=== PATIENT | female | born 1955 | race Caucasian/White ===

== ENCOUNTER 2023-10-18 11:16 | Outpatient (AMB) | payer MEDICARE, OTHER, SELFPAY ==
--- NOTE | 2023-10-18 11:59 | A.SPINEOV_ITS ---
Intake Visit Reasons: Chronic back pain Intake Note: Ms. Alonso is here today c/o low back pain. Edge Banding Off Bearer Required: No Assessment & Plan Assessment & Plan (1) Lumbar radiculopathy: Code(s): M54.16 - Radiculopathy, lumbar region Category: Medical Plan Dear Burt Thank you for referring Mrs. Alonso to our office today. 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 She murillo s been trying to do conservative management and that seems to be helping. Specifically she started with physical therapy and now has continued to do yoga and Pilates and the pain is more less manageable. She does not need to take any medications. She did try steroids at 1 point. Currently, as long she has doing the conservative management she has really not having much in the way of significant pain. She does not report any back pain. She had an MRI showing some degenerative changes with foraminal stenosis at L5. PMH: She is reasonably healthy, history of Sjogren's syndrome, thyroid cancer with thyroidectomy, laser cataract removal, sinus surgery, left leg vein surgery. Social hx: She does not smoke, drink or use any recreational drugs Medications: Levothyroxine, minocycline, gabapentin, Restasis and Gammagard Allergies: None Physical exam: She is intact strength, normal gait Imaging review: Lumbar MRI shows [id number] disc degeneration at multiple levels. Of significance though there is moderate to severe left L5 foraminal stenosis at the L5-S1 disc space. Impression: 68-year-old female presents with a left leg radiculopathy which seems consistent with the left L5 foraminal stenosis that we see on her imaging. Right now, symptoms are manageable and not in the range of needing a requiring surgery to fix. I told her if she sees improvement with the exercises that she should just continue to do those and if it gets to the point where the pain starts to affect her quality of life for interferes with the things she enjoys doing that are meaningful to her, she should come back and we can discuss possibly doing a small left L5 foraminotomy to address the stenosis. She will call us down the road if something changes. Thank you for allowing us to care for your patient. The total time spent with this visit with this patient was 45 minutes reviewing history, physical exam, lumbar imaging review, and implementation of treatment plan or further diagnostic testing James Prakash MD,PhD [facility] Coding Level of Care Code Est Pt Level 3 (93521) Diagnoses Lumbar radiculopathy M54.16
== END 2023-10-18 12:41 | disposition home or self-care (01) ==
PROVIDERS: PCP Internal Medicine Rheumatology; Referring Provider Physician Assistant; Visit Provider Physician Assistant
DX: M54.16 Radiculopathy, lumbar region (principal)
CPT/HCPCS: 99213

== ENCOUNTER → 2023-10-18 11:16 | Outpatient (BNVA) | payer MEDICARE, OTHER, SELFPAY | PROVIDERS: PCP Internal Medicine Rheumatology; Visit Provider Physician Assistant | DX: M54.16 Radiculopathy, lumbar region (principal) | CPT/HCPCS: 99212 ==